=== PATIENT | female | born 1935 | race African-American/Black ===

== ENCOUNTER 2017-12-09 12:53 | Inpatient (IN) | payer MEDICARE, OTHER ==
[~2017-12-09] VITALS: Ht 160 cm; Wt 44.5 kg
[~2017-12-09 12:53] MED LIST: CLAR500T MT; CLON0.1T PO; FELO10TA PO; HYDR25TA PO; LABE200T28 PO; LOVA40TA73 PO; OMEP20TA2 MT; VALS320T2 PO
[2017-12-09] MEDS ORDERED: SODIUM CHLORIDE 0.9% 1,000 ML IV ONE ×2 (13:24→15:11)
[2017-12-09 14:16] LABS: HEMATOCRIT. 29.1 % (36.0-48.0); MEAN CORPUSCULAR HEMOGLOBIN 31.2 pg (28.0-32.0); MEAN PLATELET VOLUME 7.5 fl (7.4-10.4); PLATELET 286 x1000/uL (130-400)
[2017-12-09 14:24] LABS: CHLORIDE 107 mEq/L (98-107); INR 1.2; PROTHROMBIN TIME 11.7 sec (9.1-11.1)
[2017-12-09 14:37] LABS: PLATELET ESTIMATE NORMAL
[2017-12-09] MEDS ORDERED: PIPERACILLIN/TAZOBACTAM 3.375GM/50ML PREMIX IV NR (15:15)
[2017-12-09] MEDS: VANCOMYCIN 1 G PREMIX 200 ML IV SCH (15:15)
[2017-12-09] MEDS ORDERED: NITROGLYCERIN 0.4MG TABLET SL SL PRN (17:00)
[2017-12-09] MEDS ORDERED: TRAMADOL 50MG TABLET PO PRN (17:00)
[2017-12-09] MEDS ORDERED: DOCUSATE SODIUM 100MG CAPSULE PO PRN (17:00)
[2017-12-09] MEDS ORDERED: CLONIDINE 0.1MG TABLET PO PRN (17:00)
[2017-12-09] MEDS ORDERED: GUAIFENESIN 200MG/10ML SUGAR FREE UDC PO PRN (17:00)
[2017-12-09] MEDS ORDERED: ACETAMINOPHEN 325MG TABLET PO PRN (17:00)
[2017-12-09] MEDS ORDERED: ONDANSETRON HCL 4MG/2ML INJ IV PRN (17:00)
[2017-12-09] MEDS ORDERED: MAGNESIUM/ALUMINUM HYDROXIDE/SIMETHICONE 30ML UDC PO PRN (17:00)
[2017-12-09] MEDS ORDERED: IPRATROPIUM/ALBUTEROL 0.5-3(2.5)MG/3ML NEB INH PRN (17:00)
[2017-12-09] MEDS: SODIUM CHLORIDE 0.9% 1,000 ML IV SCH (17:02)
[2017-12-09 17:07] LABS: CLARITY URINE CLOUDY (CLEAR); COLOR URINE DARK YELLOW (YELLOW); KETONES URINE TRACE (NEGATIVE); LEUKOCYTE ESTERASE URINE NEGATIVE (NEGATIVE); NITRITE URINE NEGATIVE (NEGATIVE); OCCULT BLOOD URINE TRACE (NEGATIVE); PH URINE 5.5 (4.5-8.0); PROTEIN URINE 2+ (NEGATIVE)
[2017-12-09] MEDS ORDERED: DEXTROSE 50% WATER 50ML SYRINGE IV PRN (17:15)
[2017-12-09 17:25] LABS: T4 FREE 1.29 ng/dL (0.76-1.46)
[2017-12-09 17:53] LABS: VITAMIN B12 SERUM >2000 pg/mL pg/mL (211-911)
[2017-12-09] MEDS: INSULIN LISPRO 100 UNITS/ML SUBCUT SCH ×2 (18:20→21:00)
[2017-12-09] MEDS ORDERED: ZOLPIDEM TARTRATE 5MG TABLET PO PRN (21:00)
[2017-12-09] MEDS ORDERED: NA PHOS,M-B/NA PHOS,DI-BA ENEMA 118ML PR PRN (21:00)
[2017-12-09] MEDS: BLOOD SUGAR DIAGNOSTIC STRIP TEST SCH (21:00)
[2017-12-09 22:20] VITALS: BP 123/54
[2017-12-09 23:25] LABS: CREATINE KINASE 28 IU/L (26-192)
[2017-12-09 23:26] LABS: CREATINE KINASE MB FRACTION < 1.0 ng/mL (0.5-3.6)
[2017-12-10] VITALS: BP 101/54
[2017-12-10] MEDS ORDERED: LEVOFLOXACIN 500MG PREMIX 100 ML IV SCH
[2017-12-10] MEDS: SODIUM CHLORIDE 0.9% 1,000 ML IV SCH ×3 (02:06→23:49)
[2017-12-10] MEDS ORDERED: TLXL5 MT (03:25)
[2017-12-10 04:00] VITALS: BP 115/58
[2017-12-10] MEDS: INSULIN LISPRO 100 UNITS/ML SUBCUT SCH ×4 (06:30→21:00)
[2017-12-10] MEDS: BLOOD SUGAR DIAGNOSTIC STRIP TEST SCH ×4 (06:30→21:48)
[2017-12-10 07:04] LABS: CREATINE KINASE 20 IU/L (26-192)
[2017-12-10 07:05] LABS: CREATINE KINASE MB FRACTION < 1.0 ng/mL (0.5-3.6)
[2017-12-10] MEDS ORDERED: INFLUENZA VIRUS VACCINE 0.5ML SYR IM ONE (08:00)
[2017-12-10 08:08] VITALS: BP 102/58
[2017-12-10] MEDS: ASCORBIC ACID 500 MG TABLET PO SCH ×2 (08:32→21:45)
[2017-12-10] MEDS: ZINC SULFATE 220 MG ( 50 ) CAPSULE PO SCH (08:32)
[2017-12-10] MEDS: FAMOTIDINE 20MG TABLET PO SCH (08:32)
[2017-12-10] MEDS: ENOXAPARIN 30MG/0.3ML SYR SUBCUT SCH (08:33)
[2017-12-10] MEDS: ASPIRIN 325MG EC TABLET PO SCH (08:34)
[2017-12-10] MEDS: METOPROLOL TARTRATE 25MG TABLET PO SCH ×2 (09:00→21:00)
[2017-12-10 12:00] VITALS: BP 107/56
[2017-12-10] MEDS: VANCOMYCIN 1 G PREMIX 200 ML IV SCH (15:15)
[2017-12-10] MEDS ORDERED: POTASSIUM CHLORIDE 20MEQ/PACKET PO NR (15:30)
[2017-12-10 16:00] VITALS: BP 108/54
[2017-12-10 20:00] VITALS: BP 106/68
[2017-12-11] VITALS: BP 114/62
[2017-12-11] MEDS: IPRATROPIUM/ALBUTEROL 0.5-3(2.5)MG/3ML NEB HHN SCH ×7 (01:45→22:20)
[2017-12-11 04:00] VITALS: BP 108/59
[2017-12-11] MEDS: BLOOD SUGAR DIAGNOSTIC STRIP TEST SCH ×4 (06:27→20:26)
[2017-12-11] MEDS: INSULIN LISPRO 100 UNITS/ML SUBCUT SCH ×4 (07:34→20:32)
[2017-12-11 08:30] VITALS: BP 105/56
[2017-12-11] MEDS: FAMOTIDINE 20MG TABLET PO SCH (08:37)
[2017-12-11] MEDS: ZINC SULFATE 220 MG ( 50 ) CAPSULE PO SCH (08:37)
[2017-12-11] MEDS: ASPIRIN 325MG EC TABLET PO SCH (08:37)
[2017-12-11] MEDS: ASCORBIC ACID 500 MG TABLET PO SCH ×2 (08:37→20:36)
[2017-12-11] MEDS: SODIUM CHLORIDE 0.9% 1,000 ML IV SCH ×2 (08:38→20:36)
[2017-12-11] MEDS: ENOXAPARIN 30MG/0.3ML SYR SUBCUT SCH (08:38)
[2017-12-11] MEDS: METOPROLOL TARTRATE 25MG TABLET PO SCH ×2 (09:00→20:30)
[2017-12-11 12:00] VITALS: BP 114/63
[2017-12-11] MEDS: LEVOFLOXACIN 250MG PREMIX 50 ML IV SCH (13:18)
[2017-12-11] MEDS: VANCOMYCIN HCL 1000 MG/20 ML ORAL PO SCH ×2 (15:38→20:36)
[2017-12-11 16:00] VITALS: BP 126/69
[2017-12-11] MEDS ORDERED: VANCOMYCIN HCL 1 GM/VIAL PO SCH (18:00)
[2017-12-11 20:00] VITALS: BP 104/58
[2017-12-12] VITALS: BP 107/61
[2017-12-12] MEDS: IPRATROPIUM/ALBUTEROL 0.5-3(2.5)MG/3ML NEB HHN SCH ×5 (02:09→19:51)
[2017-12-12] MEDS: VANCOMYCIN HCL 1000 MG/20 ML ORAL PO SCH ×4 (03:26→20:18)
[2017-12-12 04:00] VITALS: BP 124/62
[2017-12-12] MEDS: BLOOD SUGAR DIAGNOSTIC STRIP TEST SCH ×4 (05:59→20:21)
[2017-12-12] MEDS: INSULIN LISPRO 100 UNITS/ML SUBCUT SCH ×4 (06:03→20:21)
[2017-12-12] MEDS: SODIUM CHLORIDE 0.9% 1,000 ML IV SCH ×2 (06:04→18:26)
[2017-12-12 08:00] VITALS: BP 143/68
[2017-12-12] MEDS: LEVOFLOXACIN 250MG PREMIX 50 ML IV SCH (08:47)
[2017-12-12] MEDS: ZINC SULFATE 220 MG ( 50 ) CAPSULE PO SCH (08:48)
[2017-12-12] MEDS: ENOXAPARIN 30MG/0.3ML SYR SUBCUT SCH (08:48)
[2017-12-12] MEDS: ASPIRIN 325MG EC TABLET PO SCH (08:48)
[2017-12-12] MEDS: ASCORBIC ACID 500 MG TABLET PO SCH ×2 (08:48→20:18)
[2017-12-12] MEDS: METOPROLOL TARTRATE 25MG TABLET PO SCH ×2 (08:49→20:19)
[2017-12-12] MEDS: FAMOTIDINE 20MG TABLET PO SCH (08:57)
[2017-12-12 12:00] VITALS: BP 137/69
[2017-12-12 16:21] VITALS: BP 115/64
[2017-12-12 19:52] VITALS: BP 134/68
[2017-12-13] VITALS: BP 123/69
[2017-12-13] MEDS: IPRATROPIUM/ALBUTEROL 0.5-3(2.5)MG/3ML NEB HHN SCH ×4 (00:38→11:37)
[2017-12-13] MEDS: VANCOMYCIN HCL 1000 MG/20 ML ORAL PO SCH ×2 (03:15→08:48)
[2017-12-13] MEDS: SODIUM CHLORIDE 0.9% 1,000 ML IV SCH (03:16)
[2017-12-13 04:34] VITALS: BP 126/70
[2017-12-13] MEDS: INSULIN LISPRO 100 UNITS/ML SUBCUT SCH ×2 (06:43→12:40)
[2017-12-13] MEDS: BLOOD SUGAR DIAGNOSTIC STRIP TEST SCH ×2 (06:43→12:51)
[2017-12-13 07:30] VITALS: BP 117/66
[2017-12-13] MEDS: ZINC SULFATE 220 MG ( 50 ) CAPSULE PO SCH (08:49)
[2017-12-13] MEDS: FAMOTIDINE 20MG TABLET PO SCH (08:49)
[2017-12-13] MEDS: ASPIRIN 325MG EC TABLET PO SCH (08:49)
[2017-12-13] MEDS: ASCORBIC ACID 500 MG TABLET PO SCH (08:49)
[2017-12-13] MEDS: METOPROLOL TARTRATE 25MG TABLET PO SCH (08:49)
[2017-12-13] MEDS: ENOXAPARIN 30MG/0.3ML SYR SUBCUT SCH (08:50)
[2017-12-13] MEDS ORDERED: LEVOFLOXACIN 250MG TABLET PO SCH (11:00)
[2017-12-13 12:22] VITALS: BP 120/57
[2017-12-13 12:51] VITALS: BP 120/57
== END 2017-12-13 15:20 | disposition home or self-care (01) | DRG 720 ==
LOC: ER 12:53 → EDBEDREQ 15:12 → 8WST 16:26 → EDBEDREQTM 16:31 → EDBEDREQ 16:31 → SUPCPDRO 16:45 → ENRESERV 20:10
PROVIDERS: ADMIT Internal Medicine; ATTEND Internal Medicine
DX: A41.9 Sepsis, unspecified organism (principal); N17.0 Acute kidney failure with tubular necrosis; E43 Unspecified severe protein-calorie malnutrition; G92 Toxic encephalopathy; A04.72 Enterocolitis due to Clostridium difficile, not specified as recurrent; D63.8 Anemia in other chronic diseases classified elsewhere; G30.9 Alzheimer's disease, unspecified; F02.80 Dementia in other diseases classified elsewhere, unspecified severity, without behavioral disturbance, psychotic disturbance, mood disturbance, and anxiety; I10 Essential (primary) hypertension; K21.9 Gastro-esophageal reflux disease without esophagitis; R73.9 Hyperglycemia, unspecified; Z91.81 History of falling; Z68.1 Body mass index [BMI] 19.9 or less, adult; Z79.899 Other long term (current) drug therapy
CPT/HCPCS: 36415; 71045; 80048; 80053; 80061; 81003; 82550; 82553; 82607; 82746; 82962; 83036; 83540; 83550; 83605; 84439; 84443; 84484; 85025; 85610; 87040; 87086; 87493; 90686; 93005; 93306; 93970; 94640; 96361; 96374; 97110; 97116; 97162; 97166; 97530; 97535; 99285; C1893; J1650; J1956; J2543; J3370; J7030; J7620; A4315

== ENCOUNTER 2017-12-31 18:13 | Emergency (ER) | payer MEDICARE, OTHER ==
[~2017-12-31] VITALS: Ht 160 cm; Wt 45.0 kg
[~2017-12-31 18:13] MED LIST changes: +TLXL5 MT
[2017-12-31] MEDS ORDERED: SODIUM CHLORIDE 0.9% 1,000 ML IV ONE (19:17)
[2017-12-31] MEDS ORDERED: ONDANSETRON HCL 4MG/2ML INJ IV STA (19:17)
[2017-12-31 20:33] LABS: BASOPHILS % 0.3 % (0.0-2.0); EOSINOPHILS % 1.5 % (0.0-5.0); HEMATOCRIT. 27.9 % (36.0-48.0); HEMOGLOBIN. 9.8 g/dL (12.0-16.0); LYMPHOCYTES % 36.4 % (20.0-50.0); MEAN CORPUSCULAR HEMOGLOBIN 32.5 pg (28.0-32.0); MEAN CORPUSCULAR VOLUME 92.8 fL (81.0-99.0); MEAN PLATELET VOLUME 7.9 fl (7.4-10.4); MONOCYTES % 12.3 % (2.0-8.0); NEUTROPHILS % 49.5 % (40.0-76.0); PLATELET 237 x1000/uL (130-400); RED BLOOD CELL COUNT 3.01 mill/uL (4.2-5.4); RED CELL DISTRIBUTION WIDTH 17.9 % (11.6-14.6)
[2017-12-31 20:36] LABS: INR 1.1
[2017-12-31 20:38] LABS: CHLORIDE 103 mEq/L (98-107)
[2017-12-31] MEDS ORDERED: KCL 20MEQ/100ML PREMIX 100 ML IV ONE (21:00)
[2017-12-31] MEDS ORDERED: MAGNESIUM 2 G PREMIX 50 ML IV ONE (21:30)
[2018-01-01 03:53] VITALS: BP 142/67
== END 2018-01-01 04:00 | disposition short-term general hospital (02) ==
LOC: ER 22:42 → CANBEDREQ 01-01 07:06
DX: R53.1 Weakness (principal); E86.0 Dehydration; E88.09 Other disorders of plasma-protein metabolism, not elsewhere classified; E87.6 Hypokalemia; I10 Essential (primary) hypertension; K21.9 Gastro-esophageal reflux disease without esophagitis
CPT/HCPCS: 36415; 71045; 80053; 83605; 83690; 83735; 83880; 84484; 85025; 85610; 87040; 93005; 96361; 96365; 96366; 96368; 96375; 99285; J2405; J3475; J3480; J7030

== ENCOUNTER 2020-09-20 17:18 | Emergency (ER) | payer MEDICARE, OTHER ==
[~2020-09-20] VITALS: Ht 154.9 cm; Wt 60.0 kg
[~2020-09-20 17:18] MED LIST changes: +CLAR-44 MT; -CLAR500T MT; -FELO10TA PO; +FELO10TA45 PO; -LABE200T28 PO; +LABE200T9 PO
[2020-09-20 18:23] LABS: BASOPHILS % 0.8 % (0.0-2.0); EOSINOPHILS % 3.6 % (0.0-5.0); HEMATOCRIT. 33.4 % (36.0-48.0); HEMOGLOBIN. 11.5 g/dL (12.0-16.0); LYMPHOCYTES % 46.4 % (20.0-50.0); MEAN CORPUSCULAR HEMOGLOBIN 32.4 pg (28.0-32.0); MEAN CORPUSCULAR VOLUME 93.8 fL (81.0-99.0); MEAN PLATELET VOLUME 7.5 fl (7.4-10.4); MONOCYTES % 10.2 % (2.0-8.0); PLATELET 204 x1000/uL (130-400); RED BLOOD CELL COUNT 3.56 mill/uL (4.2-5.4); RED CELL DISTRIBUTION WIDTH 13.7 % (11.6-14.6)
[2020-09-20 18:26] LABS: CHLORIDE 111 mEq/L (98-107)
[2020-09-20 18:36] LABS: B-HCG QUANTITATIVE 3 mIU/mL (<3)
[2020-09-20 19:44] VITALS: BP 159/74
== END 2020-09-20 19:46 | disposition home or self-care (01) ==
LOC: ER 17:18
DX: D25.9 Leiomyoma of uterus, unspecified (principal); I10 Essential (primary) hypertension; K21.9 Gastro-esophageal reflux disease without esophagitis
CPT/HCPCS: 36415; 76830; 76856; 80053; 84702; 85025; 86850; 86900; 99284

== ENCOUNTER → 2020-11-16 | Outpatient (CLI) | payer MEDICARE, OTHER ==
[~2020-11-16] MED LIST changes: +GADOTERATE MEGLUMINE 5 MMOL/10 ML VIAL IV ONE
== END | disposition home or self-care (01) ==
LOC: MRI 09:27
PROVIDERS: ATTEND Internal Medicine Geriatric Medicine
DX: D25.1 Intramural leiomyoma of uterus (principal); N85.2 Hypertrophy of uterus; D25.2 Subserosal leiomyoma of uterus; N32.89 Other specified disorders of bladder; R19.00 Intra-abdominal and pelvic swelling, mass and lump, unspecified site; M81.0 Age-related osteoporosis without current pathological fracture
CPT/HCPCS: 72197; A9577

== ENCOUNTER → 2020-11-26 | Outpatient (CLI) | payer MEDICARE, OTHER ==
[~2020-11-26] MED LIST changes: +ATOR10TA PO; +ERGO500013; -GADOTERATE MEGLUMINE 5 MMOL/10 ML VIAL IV ONE; +MEGE400O5 PO
== END | disposition home or self-care (01) ==
LOC: CARD 08:38
PROVIDERS: ATTEND Internal Medicine Geriatric Medicine
DX: I08.1 Rheumatic disorders of both mitral and tricuspid valves (principal); I27.20 Pulmonary hypertension, unspecified; I10 Essential (primary) hypertension; R60.0 Localized edema
CPT/HCPCS: 93306

== ENCOUNTER 2020-12-07 17:04 | Inpatient (IN) | payer MEDICARE, OTHER ==
[~2020-12-07] VITALS: Ht 167.6 cm; Wt 53.8 kg
[~2020-12-07 17:04] MED LIST changes: -ATOR10TA PO; -ERGO500013; -MEGE400O5 PO
[2020-12-07 18:52] LABS: BASOPHILS % 0.9 % (0.0-2.0); EOSINOPHILS % 0.7 % (0.0-5.0); HEMATOCRIT. 28.7 % (36.0-48.0); LYMPHOCYTES % 31.4 % (20.0-50.0); MEAN CORPUSCULAR HEMOGLOBIN 32.3 pg (28.0-32.0); MEAN CORPUSCULAR VOLUME 92.7 fL (81.0-99.0); MEAN PLATELET VOLUME 7.6 fl (7.4-10.4); MONOCYTES % 11.1 % (2.0-8.0); NEUTROPHILS % 55.9 % (40.0-76.0); PLATELET 240 x1000/uL (130-400); RED CELL DISTRIBUTION WIDTH 18.7 % (11.6-14.6)
[2020-12-07 19:00] LABS: CHLORIDE 105 mEq/L (98-107)
[2020-12-07] MEDS ORDERED: ENOXAPARIN 60MG/0.6ML SYR SUBCUT ONE (20:30)
[2020-12-07 23:12] LABS: CLARITY URINE CLOUDY (CLEAR); COLOR URINE YELLOW (YELLOW); KETONES URINE NEGATIVE (NEGATIVE); LEUKOCYTE ESTERASE URINE 3+ (NEGATIVE); NITRITE URINE NEGATIVE (NEGATIVE); OCCULT BLOOD URINE 2+ (NEGATIVE); PROTEIN URINE TRACE (NEGATIVE); SPECIFIC GRAVITY URINE 1.008 (1.005-1.030); UROBILINOGEN URINE 0.2 E.U./dL (0.2-1.0)
[2020-12-07] MEDS ORDERED: ONDANSETRON HCL 4MG/2ML INJ IV PRN (23:15)
[2020-12-07] MEDS ORDERED: CLONIDINE 0.1MG TABLET PO PRN (23:15)
[2020-12-07] MEDS ORDERED: ACETAMINOPHEN 325MG TABLET PO PRN (23:15)
[2020-12-07] MEDS ORDERED: IPRATROPIUM/ALBUTEROL 0.5-3(2.5)MG/3ML NEB HHN PRN (23:15)
[2020-12-07] MEDS ORDERED: MAGNESIUM/ALUMINUM HYDROXIDE/SIMETHICONE 30ML UDC PO PRN (23:15)
[2020-12-08 00:31] LABS: BG CARBOXYHEMOGLOBIN 0.2 % (0.5-1.5); BG DEOXYHEMOGLOBIN 3.2 % (0.0-5.0); BG FRACTION INSPIRED OXYGEN 21; BG HCO3 ACT 25.1 mmol/L (22.0-26.0); BG METHEMOGLOBIN 0.2 % (0.0-1.5); BG OXYGEN SATURATION 96.8 % (92.0-98.5); BG OXYHEMOGLOBIN 96.4 % (94.0-97.0); BG PCO2 33.5 mmHg (35.0-45.0); BG PH 7.493 (7.350-7.450); BG SAMPLE SITE RIGHT RADIAL; BG TOTAL HEMOGLOBIN 9.3 g/dL (12.0-18.0); BG VENT MODE ROOM AIR
[2020-12-08] MEDS ORDERED: CEFTRIAXONE 1 G PREMIX 50 ML IV ONE (01:30)
[2020-12-08 04:49] VITALS: BP 127/67
[2020-12-08 04:50] VITALS: BP 127/67
[2020-12-08] MEDS: PANTOPRAZOLE 40MG DR TABLET PO SCH (05:45)
[2020-12-08] MEDS ORDERED: ATOR10TA PO (06:27)
[2020-12-08] MEDS ORDERED: ERGO1250 (06:28)
[2020-12-08] MEDS ORDERED: MEGE400O5 PO (06:29)
[2020-12-08] MEDS: DOCUSATE SODIUM 100MG CAPSULE PO SCH ×2 (08:55→17:51)
[2020-12-08] MEDS: MEMANTINE HCL 5MG TABLET PO SCH (08:55)
[2020-12-08] MEDS: GALANTAMINE HBR 8MG ER CAPSULE 24HR PO SCH (08:55)
[2020-12-08 09:13] LABS: BASOPHILS % 0.4 % (0.0-2.0); EOSINOPHILS % 1.2 % (0.0-5.0); HEMATOCRIT. 24.7 % (36.0-48.0); HEMOGLOBIN. 8.9 g/dL (12.0-16.0); LYMPHOCYTES % 41.9 % (20.0-50.0); MEAN CORPUSCULAR HEMOGLOBIN 32.9 pg (28.0-32.0); MEAN CORPUSCULAR VOLUME 91.6 fL (81.0-99.0); MEAN PLATELET VOLUME 7.8 fl (7.4-10.4); MONOCYTES % 10.9 % (2.0-8.0); NEUTROPHILS % 45.6 % (40.0-76.0); PLATELET 213 x1000/uL (130-400); RED CELL DISTRIBUTION WIDTH 18.7 % (11.6-14.6)
[2020-12-08] MEDS ORDERED: PNEUMOCOCCAL 23-VAL P-SAC VAC 0.5 ML IM ONE (10:00)
[2020-12-08 12:00] VITALS: BP 126/60
[2020-12-08 15:51] LABS: INR 1.1; PROTHROMBIN TIME 11.9 sec (9.6-11.0)
[2020-12-08 16:00] VITALS: BP 120/57
[2020-12-08 20:32] VITALS: BP 116/57
[2020-12-08] MEDS: ENOXAPARIN 40MG/0.4ML SYR SUBCUT SCH (21:00)
[2020-12-08 23:59] VITALS: BP 128/74
[2020-12-09] VITALS (17 sets, daily range): BP systolic 126–150; BP diastolic 62–76
[2020-12-09] MEDS: PANTOPRAZOLE 40MG DR TABLET PO SCH (05:50)
[2020-12-09 06:21] LABS: BASOPHILS % 0.4 % (0.0-2.0); EOSINOPHILS % 0.7 % (0.0-5.0); HEMATOCRIT. 26.9 % (36.0-48.0); HEMOGLOBIN. 9.1 g/dL (12.0-16.0); LYMPHOCYTES % 35.4 % (20.0-50.0); MEAN CORPUSCULAR HEMOGLOBIN 32.3 pg (28.0-32.0); MEAN CORPUSCULAR VOLUME 94.8 fL (81.0-99.0); MEAN PLATELET VOLUME 8.1 fl (7.4-10.4); MONOCYTES % 10.1 % (2.0-8.0); NEUTROPHILS % 53.4 % (40.0-76.0); PLATELET 211 x1000/uL (130-400); RED BLOOD CELL COUNT 2.83 mill/uL (4.2-5.4); RED CELL DISTRIBUTION WIDTH 20.1 % (11.6-14.6)
[2020-12-09] MEDS ORDERED: CEFAZOLIN 1000MG PREMIX 50 ML IV NR (07:15)
[2020-12-09] MEDS ORDERED: SODIUM BICARBONATE 4% (2.4MEQ) 5ML VIAL IV ONE (07:24)
[2020-12-09] MEDS ORDERED: CEFAZOLIN 1000MG PREMIX 50 ML IV ONE (07:24)
[2020-12-09] MEDS ORDERED: IOHEXOL-300 100 ML BOTTLE ONE (07:24)
[2020-12-09] MEDS ORDERED: LIDOCAINE HCL 1% 20ML VIAL (Pyxis) INJ ONE (07:24)
[2020-12-09] MEDS: DOCUSATE SODIUM 100MG CAPSULE PO SCH ×2 (09:00→16:45)
[2020-12-09] MEDS: MEMANTINE HCL 5MG TABLET PO SCH (11:24)
[2020-12-09] MEDS: GALANTAMINE HBR 8MG ER CAPSULE 24HR PO SCH (11:24)
[2020-12-09] MEDS ORDERED: ATENOLOL 25MG TABLET PO ONE ×2 (11:30)
[2020-12-09] MEDS: ENOXAPARIN 40MG/0.4ML SYR SUBCUT SCH (20:03)
[2020-12-10] VITALS: BP 113/46
[2020-12-10 04:00] VITALS: BP 107/52
[2020-12-10] MEDS ORDERED: FAMOTIDINE 20MG TABLET PO SCH (06:40)
[2020-12-10 08:00] VITALS: BP 121/67
[2020-12-10] MEDS: GALANTAMINE HBR 8MG ER CAPSULE 24HR PO SCH (08:50)
[2020-12-10] MEDS: DOCUSATE SODIUM 100MG CAPSULE PO SCH (08:51)
[2020-12-10] MEDS: MEMANTINE HCL 5MG TABLET PO SCH (08:51)
[2020-12-10] MEDS ORDERED: ATENOLOL 25MG TABLET PO SCH (09:00)
[2020-12-10] MEDS ORDERED: ATENOLOL 50 MG TABLET PO SCH (09:00)
[2020-12-10 10:42] VITALS: BP 121/67
== END 2020-12-10 14:10 | disposition home or self-care (01) | DRG 197 ==
LOC: ER 17:04 → 7EST 20:28 → ENRESERV 23:16 → CANRESERV 23:16 → ENRESERV 12-08 03:19
PROVIDERS: ADMIT Internal Medicine Geriatric Medicine; ATTEND Internal Medicine Geriatric Medicine
PROC: 06H03DZ Insertion of Intraluminal Device into Inferior Vena Cava, Percutaneous Approach (ICD-10-PCS; principal; 2020-12-09)
PROC: B519ZZA Fluoroscopy of Inferior Vena Cava, Guidance (ICD-10-PCS; 2020-12-09)
DX: I82.412 Acute embolism and thrombosis of left femoral vein (principal); I27.21 Secondary pulmonary arterial hypertension; N17.9 Acute kidney failure, unspecified; D63.8 Anemia in other chronic diseases classified elsewhere; G30.9 Alzheimer's disease, unspecified; F02.81 Dementia in other diseases classified elsewhere, unspecified severity, with behavioral disturbance; I82.432 Acute embolism and thrombosis of left popliteal vein; I38 Endocarditis, valve unspecified; I12.9 Hypertensive chronic kidney disease with stage 1 through stage 4 chronic kidney disease, or unspecified chronic kidney disease; N39.0 Urinary tract infection, site not specified; N18.9 Chronic kidney disease, unspecified; D25.9 Leiomyoma of uterus, unspecified; K21.9 Gastro-esophageal reflux disease without esophagitis; Z20.822 Contact with and (suspected) exposure to COVID-19; K57.90 Diverticulosis of intestine, part unspecified, without perforation or abscess without bleeding; I36.1 Nonrheumatic tricuspid (valve) insufficiency; Z86.73 Personal history of transient ischemic attack (TIA), and cerebral infarction without residual deficits; Z95.828 Presence of other vascular implants and grafts; Z79.1 Long term (current) use of non-steroidal anti-inflammatories (NSAID); Z79.899 Other long term (current) drug therapy; R53.1 Weakness
CPT/HCPCS: 36415; 36600; 37191; 78582; 80048; 80053; 81003; 82375; 82805; 83036; 83540; 83550; 84443; 85025; 90732; 93971; 97162; 99285; A9558; C1769; C1880; C1887; J0690; J0696; J1650; J3490; J7040; Q9967; U0003; U0005

== ENCOUNTER 2021-01-29 09:27 | Inpatient (IN) | payer MEDICARE, OTHER ==
[~2021-01-29] VITALS: Ht 152.4 cm; Wt 46.7 kg
[~2021-01-29 09:27] MED LIST changes: +ATOR10TA PO; +ERGO1250
[2021-01-29 10:36] LABS: BASOPHILS % 1.3 % (0.0-2.0); EOSINOPHILS % 0.9 % (0.0-5.0); HEMATOCRIT. 28.7 % (36.0-48.0); LYMPHOCYTES % 32.7 % (20.0-50.0); MEAN CORPUSCULAR HEMOGLOBIN 32.9 pg (28.0-32.0); MEAN CORPUSCULAR VOLUME 94.8 fL (81.0-99.0); MEAN PLATELET VOLUME 7.5 fl (7.4-10.4); MONOCYTES % 10.1 % (2.0-8.0); PLATELET 214 x1000/uL (130-400); RED BLOOD CELL COUNT 3.03 mill/uL (4.2-5.4); RED CELL DISTRIBUTION WIDTH 14.9 % (11.6-14.6)
[2021-01-29 10:45] LABS: CHLORIDE 108 mEq/L (98-107)
[2021-01-29 10:48] LABS: ETHANOL BLOOD < 10 mg/dL
[2021-01-29] MEDS ORDERED: FUROSEMIDE 20MG/2ML VIAL IVP ONE (11:15)
[2021-01-30] MEDS ORDERED: NALOXONE HCL 0.4MG/ML VIAL IV PRN (13:15)
[2021-01-30] MEDS ORDERED: ACETAMINOPHEN 325MG TABLET PO PRN ×2 (13:15)
[2021-01-30] MEDS ORDERED: IPRATROPIUM/ALBUTEROL 0.5-3(2.5)MG/3ML NEB HHN PRN (13:15)
[2021-01-30] MEDS ORDERED: CLONIDINE 0.1MG TABLET PO PRN (13:15)
[2021-01-30] MEDS ORDERED: LORAZEPAM 0.5MG TABLET PO PRN (13:15)
[2021-01-30] MEDS ORDERED: HYDROCODONE/ACETAMINOPHEN 5/325MG TABLET PO PRN (13:15)
[2021-01-30] MEDS ORDERED: ONDANSETRON HCL 4MG/2ML INJ IV PRN (13:15)
[2021-01-30] MEDS ORDERED: DOCUSATE SODIUM 100MG CAPSULE PO PRN (13:15)
[2021-01-30] MEDS ORDERED: IOHEXOL-350 100 ML BOTTLE ONE (13:17)
[2021-01-30 16:01] VITALS: BP 188/83
[2021-01-30 16:30] VITALS: BP 188/83
[2021-01-30] MEDS ORDERED: APIX2.5T MT (16:41)
[2021-01-30] MEDS: ASPIRIN 81MG EC TABLET PO SCH (17:02)
[2021-01-30] MEDS: LOSARTAN POTASSIUM 25 MG TABLET PO SCH (17:06)
[2021-01-30 19:36] LABS: CREATINE KINASE MB FRACTION 4.5 ng/mL (0.5-3.6)
[2021-01-30 19:37] LABS: FOLIC ACID (FOLATE) SERUM > 20.00 ng/mL (>5.38)
[2021-01-30 19:44] LABS: VITAMIN B12 SERUM 1071 pg/mL (211-911)
[2021-01-30 20:00] VITALS: BP 165/89
[2021-01-30] MEDS ORDERED: POTASSIUM CHLORIDE 20MEQ TABLET SR PO NR (20:00)
[2021-01-30] MEDS: METOPROLOL TARTRATE 25MG TABLET PO SCH (21:01)
[2021-01-30] MEDS: FAMOTIDINE 20MG TABLET PO SCH (21:01)
[2021-01-30] MEDS: NITROGLYCERIN OINT 1GM/INCH UDPKT TD SCH (21:02)
[2021-01-30] MEDS: CLONIDINE 0.1MG TABLET PO SCH (21:02)
[2021-01-31] VITALS: BP 160/92
[2021-01-31] MEDS: CLONIDINE 0.1MG TABLET PO SCH ×6 (00:38→22:26)
[2021-01-31 04:00] VITALS: BP 136/81
[2021-01-31] MEDS: NITROGLYCERIN OINT 1GM/INCH UDPKT TD SCH ×3 (05:10→22:27)
[2021-01-31 06:43] LABS: BASOPHILS % 0.8 % (0.0-2.0); EOSINOPHILS % 0.8 % (0.0-5.0); HEMATOCRIT. 28.3 % (36.0-48.0); HEMOGLOBIN. 9.8 g/dL (12.0-16.0); MEAN CORPUSCULAR HEMOGLOBIN 32.9 pg (28.0-32.0); MEAN CORPUSCULAR VOLUME 94.8 fL (81.0-99.0); MEAN PLATELET VOLUME 7.7 fl (7.4-10.4); MONOCYTES % 9.2 % (2.0-8.0); NEUTROPHILS % 63.2 % (40.0-76.0); PLATELET 216 x1000/uL (130-400); RED BLOOD CELL COUNT 2.99 mill/uL (4.2-5.4); RED CELL DISTRIBUTION WIDTH 14.9 % (11.6-14.6)
[2021-01-31 07:57] LABS: CREATINE KINASE MB FRACTION 3.5 ng/mL (0.5-3.6)
[2021-01-31] MEDS ORDERED: POTASSIUM CHLORIDE 20MEQ TABLET SR PO SCH (09:00)
[2021-01-31] MEDS: LOSARTAN POTASSIUM 25 MG TABLET PO SCH (09:10)
[2021-01-31] MEDS: METOPROLOL TARTRATE 25MG TABLET PO SCH ×2 (09:10→21:00)
[2021-01-31] MEDS: ASPIRIN 81MG EC TABLET PO SCH (09:10)
[2021-01-31] MEDS: FAMOTIDINE 20MG TABLET PO SCH (09:10)
[2021-01-31] MEDS ORDERED: POTASSIUM CHLORIDE 20MEQ/PACKET PO NR (09:15)
[2021-01-31] MEDS ORDERED: POTASSIUM CHLORIDE 20MEQ TABLET SR PO ONE (09:45)
[2021-01-31] MEDS ORDERED: CLOPIDOGREL 75MG TABLET PO SCH (10:00)
[2021-01-31] MEDS ORDERED: PANTOPRAZOLE 40MG DR TABLET PO SCH (10:00)
[2021-01-31] MEDS: SODIUM CHLORIDE 0.45% 1,000 ML IV SCH (11:08)
[2021-01-31] MEDS ORDERED: GALANTAMINE HBR 8MG ER CAPSULE 24HR PO SCH (12:00)
[2021-01-31 14:00] VITALS: BP 144/76
[2021-01-31] MEDS: FERROUS SULFATE 325MG TABLET PO SCH ×2 (14:37→17:17)
[2021-01-31 17:00] VITALS: BP 116/55
[2021-01-31 20:00] VITALS: BP 159/70
[2021-01-31] MEDS: ATORVASTATIN CALCIUM 40MG TABLET PO SCH (22:27)
[2021-02-01] VITALS (7 sets, daily range): BP systolic 83–158; BP diastolic 45–87
[2021-02-01] MEDS: CLONIDINE 0.1MG TABLET PO SCH ×6 (00:53→20:55)
[2021-02-01] MEDS: NITROGLYCERIN OINT 1GM/INCH UDPKT TD SCH ×3 (07:17→21:01)
[2021-02-01] MEDS: PANTOPRAZOLE 40MG DR TABLET PO SCH (07:17)
[2021-02-01] MEDS: ASPIRIN 81MG EC TABLET PO SCH (08:51)
[2021-02-01] MEDS: FERROUS SULFATE 325MG TABLET PO SCH ×3 (08:51→16:15)
[2021-02-01] MEDS: GALANTAMINE HBR 8MG ER CAPSULE 24HR PO SCH (08:51)
[2021-02-01] MEDS: POTASSIUM CHLORIDE 20MEQ TABLET SR PO SCH (08:52)
[2021-02-01] MEDS: METOPROLOL TARTRATE 25MG TABLET PO SCH ×2 (08:53→20:56)
[2021-02-01] MEDS ORDERED: MAGNESIUM 2 G PREMIX 50 ML IV PRN (09:00)
[2021-02-01 09:24] LABS: BASOPHILS % 0.7 % (0.0-2.0); EOSINOPHILS % 1.6 % (0.0-5.0); HEMATOCRIT. 27.1 % (36.0-48.0); HEMOGLOBIN. 9.5 g/dL (12.0-16.0); LYMPHOCYTES % 25.7 % (20.0-50.0); MEAN CORPUSCULAR VOLUME 94.4 fL (81.0-99.0); MEAN PLATELET VOLUME 7.8 fl (7.4-10.4); MONOCYTES % 10.3 % (2.0-8.0); NEUTROPHILS % 61.7 % (40.0-76.0); PLATELET 189 x1000/uL (130-400); RED BLOOD CELL COUNT 2.87 mill/uL (4.2-5.4); RED CELL DISTRIBUTION WIDTH 14.7 % (11.6-14.6)
[2021-02-01] MEDS ORDERED: POTASSIUM CHLORIDE 20MEQ/PACKET PO SCH (09:45)
[2021-02-01] MEDS: CLOPIDOGREL 75MG TABLET PO SCH (11:12)
[2021-02-01] MEDS ORDERED: POTASSIUM CHLORIDE 20MEQ/PACKET PO NR (15:30)
[2021-02-01] MEDS: ATORVASTATIN CALCIUM 40MG TABLET PO SCH (21:52)
[2021-02-02] VITALS (7 sets, daily range): BP systolic 145–170; BP diastolic 76–89
[2021-02-02] MEDS: CLONIDINE 0.1MG TABLET PO SCH ×7 (00:46→23:43)
[2021-02-02] MEDS: SODIUM CHLORIDE 0.45% 1,000 ML IV SCH ×3 (00:47→21:21)
[2021-02-02] MEDS: FERROUS SULFATE 325MG TABLET PO SCH ×3 (06:53→17:00)
[2021-02-02] MEDS: PANTOPRAZOLE 40MG DR TABLET PO SCH (06:53)
[2021-02-02] MEDS: NITROGLYCERIN OINT 1GM/INCH UDPKT TD SCH ×3 (06:54→21:21)
[2021-02-02 06:59] LABS: BASOPHILS % 0.7 % (0.0-2.0); HEMATOCRIT. 27.6 % (36.0-48.0); HEMOGLOBIN. 9.8 g/dL (12.0-16.0); LYMPHOCYTES % 32.2 % (20.0-50.0); MEAN CORPUSCULAR HEMOGLOBIN 33.3 pg (28.0-32.0); MEAN PLATELET VOLUME 7.7 fl (7.4-10.4); MONOCYTES % 11.3 % (2.0-8.0); NEUTROPHILS % 52.8 % (40.0-76.0); PLATELET 174 x1000/uL (130-400); RED BLOOD CELL COUNT 2.94 mill/uL (4.2-5.4); RED CELL DISTRIBUTION WIDTH 15.1 % (11.6-14.6)
[2021-02-02 07:13] LABS: CHLORIDE 107 mEq/L (98-107)
[2021-02-02] MEDS: ASPIRIN 81MG EC TABLET PO SCH (08:30)
[2021-02-02] MEDS: POTASSIUM CHLORIDE 20MEQ TABLET SR PO SCH (08:30)
[2021-02-02] MEDS: GALANTAMINE HBR 8MG ER CAPSULE 24HR PO SCH (08:30)
[2021-02-02] MEDS: METOPROLOL TARTRATE 25MG TABLET PO SCH ×2 (08:31→21:21)
[2021-02-02 09:08] LABS: CLARITY URINE TURBID (CLEAR); COLOR URINE RED (YELLOW); KETONES URINE 2+ (NEGATIVE); LEUKOCYTE ESTERASE URINE 2+ (NEGATIVE); NITRITE URINE POSITIVE (NEGATIVE); OCCULT BLOOD URINE 3+ (NEGATIVE); PH URINE 6.5 (4.5-8.0); PROTEIN URINE 2+ (NEGATIVE); SPECIFIC GRAVITY URINE 1.008 (1.005-1.030)
[2021-02-02] MEDS: CLOPIDOGREL 75MG TABLET PO SCH (17:00)
[2021-02-02] MEDS: ATORVASTATIN CALCIUM 40MG TABLET PO SCH (21:20)
[2021-02-03] VITALS: BP 136/77
[2021-02-03 04:00] VITALS: BP 159/84
[2021-02-03] MEDS: CLONIDINE 0.1MG TABLET PO SCH ×3 (04:40→17:04)
[2021-02-03] MEDS: NITROGLYCERIN OINT 1GM/INCH UDPKT TD SCH ×3 (05:52→21:34)
[2021-02-03] MEDS: PANTOPRAZOLE 40MG DR TABLET PO SCH (05:52)
[2021-02-03 08:00] VITALS: BP 146/83
[2021-02-03] MEDS ORDERED: CEFTRIAXONE 1 G PREMIX 50 ML IV SCH (09:15)
[2021-02-03] MEDS: ASPIRIN 81MG EC TABLET PO SCH (10:00)
[2021-02-03] MEDS ORDERED: LEVOFLOXACIN 250MG PREMIX 50 ML IV ONE (10:00)
[2021-02-03] MEDS: POTASSIUM CHLORIDE 20MEQ TABLET SR PO SCH (10:00)
[2021-02-03] MEDS: FERROUS SULFATE 325MG TABLET PO SCH ×3 (10:01→17:04)
[2021-02-03] MEDS: CLOPIDOGREL 75MG TABLET PO SCH (10:01)
[2021-02-03] MEDS: GALANTAMINE HBR 8MG ER CAPSULE 24HR PO SCH (10:01)
[2021-02-03] MEDS: METOPROLOL TARTRATE 25MG TABLET PO SCH ×2 (10:02→21:34)
[2021-02-03 11:52] LABS: BASOPHILS % 0.5 % (0.0-2.0); EOSINOPHILS % 2.3 % (0.0-5.0); LYMPHOCYTES % 29.5 % (20.0-50.0); MEAN CORPUSCULAR HEMOGLOBIN 32.5 pg (28.0-32.0); MEAN CORPUSCULAR VOLUME 94.2 fL (81.0-99.0); MONOCYTES % 11.2 % (2.0-8.0); NEUTROPHILS % 56.5 % (40.0-76.0); PLATELET 180 x1000/uL (130-400); RED BLOOD CELL COUNT 2.76 mill/uL (4.2-5.4); RED CELL DISTRIBUTION WIDTH 14.7 % (11.6-14.6)
[2021-02-03 12:00] VITALS: BP 137/74
[2021-02-03 16:00] VITALS: BP 133/78
[2021-02-03] MEDS: CEFTRIAXONE 1,000 MG in DEXTROSE 5% WATER 50 ML IV SCH (17:04)
[2021-02-03 17:17] LABS: CLARITY URINE CLOUDY (CLEAR); COLOR URINE RED (YELLOW); KETONES URINE TRACE (NEGATIVE); LEUKOCYTE ESTERASE URINE 1+ (NEGATIVE); NITRITE URINE NEGATIVE (NEGATIVE); OCCULT BLOOD URINE 3+ (NEGATIVE); PROTEIN URINE 3+ (NEGATIVE); SPECIFIC GRAVITY URINE 1.019 (1.005-1.030)
[2021-02-03 20:00] VITALS: BP 148/76
[2021-02-03] MEDS: ATORVASTATIN CALCIUM 40MG TABLET PO SCH (21:33)
[2021-02-03] MEDS: AMLODIPINE 5MG TABLET PO SCH (21:34)
[2021-02-04] VITALS: BP 136/74
[2021-02-04 04:00] VITALS: BP 123/70
[2021-02-04] MEDS: NITROGLYCERIN OINT 1GM/INCH UDPKT TD SCH ×3 (05:41→20:56)
[2021-02-04] MEDS: PANTOPRAZOLE 40MG DR TABLET PO SCH (05:41)
[2021-02-04 06:10] LABS: BASOPHILS % 0.5 % (0.0-2.0); EOSINOPHILS % 2.3 % (0.0-5.0); HEMATOCRIT. 25.5 % (36.0-48.0); HEMOGLOBIN. 8.8 g/dL (12.0-16.0); LYMPHOCYTES % 30.7 % (20.0-50.0); MEAN CORPUSCULAR HEMOGLOBIN 32.8 pg (28.0-32.0); MEAN CORPUSCULAR VOLUME 95.3 fL (81.0-99.0); MEAN PLATELET VOLUME 8.3 fl (7.4-10.4); MONOCYTES % 12.3 % (2.0-8.0); NEUTROPHILS % 54.2 % (40.0-76.0); PLATELET 184 x1000/uL (130-400); RED BLOOD CELL COUNT 2.67 mill/uL (4.2-5.4); RED CELL DISTRIBUTION WIDTH 14.8 % (11.6-14.6)
[2021-02-04 08:00] VITALS: BP_SYST 108; BP_SYST 128; BP_DIAS 65; BP_DIAS 66
[2021-02-04] MEDS: AMLODIPINE 5MG TABLET PO SCH ×2 (09:00→20:56)
[2021-02-04] MEDS: METOPROLOL TARTRATE 25MG TABLET PO SCH ×2 (09:00→20:56)
[2021-02-04] MEDS: CLONIDINE 0.1MG TABLET PO SCH ×2 (09:00→17:00)
[2021-02-04] MEDS: FERROUS SULFATE 325MG TABLET PO SCH ×3 (10:52→18:01)
[2021-02-04] MEDS: GALANTAMINE HBR 8MG ER CAPSULE 24HR PO SCH (10:54)
[2021-02-04] MEDS: CEFTRIAXONE 1,000 MG in DEXTROSE 5% WATER 50 ML IV SCH (11:25)
[2021-02-04 12:00] VITALS: BP 137/69
[2021-02-04] MEDS ORDERED: SODIUM POLYSTYRENE SULFONATE 15 G/60 ML BOT PO NR (12:00)
[2021-02-04 16:00] VITALS: BP 112/73
[2021-02-04 20:00] VITALS: BP 141/72
[2021-02-04] MEDS: ATORVASTATIN CALCIUM 40MG TABLET PO SCH (20:55)
[2021-02-05] VITALS: BP 133/74
[2021-02-05 04:00] VITALS: BP 124/71
[2021-02-05] MEDS: FERROUS SULFATE 325MG TABLET PO SCH ×3 (05:25→17:27)
[2021-02-05] MEDS: NITROGLYCERIN OINT 1GM/INCH UDPKT TD SCH ×3 (05:25→21:13)
[2021-02-05] MEDS: PANTOPRAZOLE 40MG DR TABLET PO SCH (05:25)
[2021-02-05 07:11] LABS: BASOPHILS % 0.4 % (0.0-2.0); EOSINOPHILS % 1.3 % (0.0-5.0); HEMATOCRIT. 27.2 % (36.0-48.0); HEMOGLOBIN. 9.4 g/dL (12.0-16.0); LYMPHOCYTES % 25.9 % (20.0-50.0); MEAN CORPUSCULAR HEMOGLOBIN 32.6 pg (28.0-32.0); MEAN CORPUSCULAR VOLUME 93.8 fL (81.0-99.0); MEAN PLATELET VOLUME 8.1 fl (7.4-10.4); MONOCYTES % 10.8 % (2.0-8.0); NEUTROPHILS % 61.6 % (40.0-76.0); PLATELET 217 x1000/uL (130-400); RED CELL DISTRIBUTION WIDTH 14.8 % (11.6-14.6)
[2021-02-05 08:00] VITALS: BP 104/51
[2021-02-05] MEDS: AMLODIPINE 5MG TABLET PO SCH ×2 (09:00→21:13)
[2021-02-05] MEDS: CLONIDINE 0.1MG TABLET PO SCH ×2 (09:00→17:26)
[2021-02-05] MEDS: METOPROLOL TARTRATE 25MG TABLET PO SCH ×2 (09:00→20:35)
[2021-02-05] MEDS: GALANTAMINE HBR 8MG ER CAPSULE 24HR PO SCH (09:16)
[2021-02-05] MEDS: CEFTRIAXONE 1,000 MG in DEXTROSE 5% WATER 50 ML IV SCH (11:42)
[2021-02-05 12:00] VITALS: BP 129/63
[2021-02-05] MEDS ORDERED: SODIUM BICARBONATE 8.4% 1 MEQ/ML 50ML SYR IV SCH (14:00)
[2021-02-05 16:00] VITALS: BP 143/69
[2021-02-05 20:00] VITALS: BP 120/66
[2021-02-05] MEDS: ATORVASTATIN CALCIUM 40MG TABLET PO SCH (20:34)
[2021-02-06] VITALS: BP 111/57
[2021-02-06 04:00] VITALS: BP 110/54
[2021-02-06] MEDS: PANTOPRAZOLE 40MG DR TABLET PO SCH (06:02)
[2021-02-06] MEDS: NITROGLYCERIN OINT 1GM/INCH UDPKT TD SCH ×3 (06:02→21:10)
[2021-02-06 08:00] VITALS: BP 130/59
[2021-02-06] MEDS: AMLODIPINE 5MG TABLET PO SCH ×2 (08:35→21:10)
[2021-02-06] MEDS: FERROUS SULFATE 325MG TABLET PO SCH ×3 (08:35→17:28)
[2021-02-06] MEDS: CLONIDINE 0.1MG TABLET PO SCH ×2 (08:35→16:23)
[2021-02-06] MEDS: GALANTAMINE HBR 8MG ER CAPSULE 24HR PO SCH (08:35)
[2021-02-06] MEDS: METOPROLOL TARTRATE 25MG TABLET PO SCH ×2 (08:39→21:10)
[2021-02-06] MEDS: CEFTRIAXONE 1,000 MG in DEXTROSE 5% WATER 50 ML IV SCH (11:27)
[2021-02-06 12:00] VITALS: BP 135/61
[2021-02-06 16:00] VITALS: BP_SYST 104; BP_SYST 143; BP_DIAS 52; BP_DIAS 68
[2021-02-06 20:00] VITALS: BP 128/66
[2021-02-06] MEDS: ATORVASTATIN CALCIUM 40MG TABLET PO SCH (21:09)
[2021-02-07] VITALS: BP 123/72
[2021-02-07 04:00] VITALS: BP 126/60
[2021-02-07] MEDS: NITROGLYCERIN OINT 1GM/INCH UDPKT TD SCH ×3 (06:10→21:28)
[2021-02-07] MEDS: PANTOPRAZOLE 40MG DR TABLET PO SCH (06:10)
[2021-02-07 06:21] LABS: HEMATOCRIT. 23.5 % (36.0-48.0); HEMOGLOBIN. 8.2 g/dL (12.0-16.0); MEAN CORPUSCULAR HEMOGLOBIN 33.1 pg (28.0-32.0); MEAN CORPUSCULAR VOLUME 94.9 fL (81.0-99.0); MEAN PLATELET VOLUME 8.4 fl (7.4-10.4); PLATELET 215 x1000/uL (130-400); RED BLOOD CELL COUNT 2.47 mill/uL (4.2-5.4); RED CELL DISTRIBUTION WIDTH 14.7 % (11.6-14.6)
[2021-02-07 08:00] VITALS: BP 127/62
[2021-02-07] MEDS: GALANTAMINE HBR 8MG ER CAPSULE 24HR PO SCH (08:26)
[2021-02-07] MEDS: ASPIRIN 81MG EC TABLET PO SCH (08:26)
[2021-02-07] MEDS: CLOPIDOGREL 75MG TABLET PO SCH (08:27)
[2021-02-07] MEDS: FERROUS SULFATE 325MG TABLET PO SCH ×3 (08:27→16:43)
[2021-02-07] MEDS: CLONIDINE 0.1MG TABLET PO SCH ×2 (08:28→16:42)
[2021-02-07] MEDS: AMLODIPINE 5MG TABLET PO SCH ×2 (08:28→20:39)
[2021-02-07] MEDS: METOPROLOL TARTRATE 25MG TABLET PO SCH ×2 (08:29→20:38)
[2021-02-07 12:00] VITALS: BP 120/58
[2021-02-07] MEDS: CEFTRIAXONE 1,000 MG in DEXTROSE 5% WATER 50 ML IV SCH (13:06)
[2021-02-07 16:00] VITALS: BP 142/58
[2021-02-07 17:48] LABS: HEMATOCRIT 27.1 % (36.0-48.0); HEMOGLOBIN 9.5 g/dL (12.0-16.0)
[2021-02-07 20:00] VITALS: BP 104/60
[2021-02-07 21:00] LABS: PLATELET ESTIMATE NORMAL
[2021-02-07] MEDS: ATORVASTATIN CALCIUM 40MG TABLET PO SCH (21:28)
[2021-02-08] VITALS: BP 127/59
[2021-02-08 04:00] VITALS: BP 135/56
[2021-02-08] MEDS: FERROUS SULFATE 325MG TABLET PO SCH ×2 (06:28→14:41)
[2021-02-08] MEDS: PANTOPRAZOLE 40MG DR TABLET PO SCH (06:28)
[2021-02-08] MEDS: NITROGLYCERIN OINT 1GM/INCH UDPKT TD SCH ×2 (06:29→14:42)
[2021-02-08 08:00] VITALS: BP 125/69
[2021-02-08] MEDS: METOPROLOL TARTRATE 25MG TABLET PO SCH (09:00)
[2021-02-08] MEDS: AMLODIPINE 5MG TABLET PO SCH (09:30)
[2021-02-08] MEDS: GALANTAMINE HBR 8MG ER CAPSULE 24HR PO SCH (09:30)
[2021-02-08] MEDS: CLOPIDOGREL 75MG TABLET PO SCH (09:31)
[2021-02-08] MEDS: CLONIDINE 0.1MG TABLET PO SCH (09:31)
[2021-02-08] MEDS: ASPIRIN 81MG EC TABLET PO SCH (09:36)
[2021-02-08] MEDS: CEFTRIAXONE 1,000 MG in DEXTROSE 5% WATER 50 ML IV SCH (11:11)
[2021-02-08 12:00] VITALS: BP 129/54
[2021-02-08 16:00] VITALS: BP 130/61
[2021-02-08 16:12] LABS: BASOPHILS % 0.5 % (0.0-2.0); EOSINOPHILS % 1.5 % (0.0-5.0); HEMATOCRIT. 22.4 % (36.0-48.0); HEMOGLOBIN. 7.6 g/dL (12.0-16.0); LYMPHOCYTES % 20.4 % (20.0-50.0); MEAN CORPUSCULAR HEMOGLOBIN 32.1 pg (28.0-32.0); MEAN CORPUSCULAR VOLUME 94.2 fL (81.0-99.0); MEAN PLATELET VOLUME 7.7 fl (7.4-10.4); MONOCYTES % 14.3 % (2.0-8.0); NEUTROPHILS % 63.3 % (40.0-76.0); PLATELET 240 x1000/uL (130-400); RED BLOOD CELL COUNT 2.38 mill/uL (4.2-5.4); RED CELL DISTRIBUTION WIDTH 14.4 % (11.6-14.6)
[2021-02-08 17:02] VITALS: BP 130/61
== END 2021-02-08 18:25 | disposition home health service (06) | DRG 280 ==
LOC: ER 10:28 → MICUSO 01-30 00:44 → 7EST 01-30 14:48
PROVIDERS: ADMIT Internal Medicine; ATTEND Internal Medicine Geriatric Medicine
PROC: 4A10X4Z Monitoring of Central Nervous Electrical Activity, External Approach (ICD-10-PCS; principal; 2021-01-31)
DX: I21.4 Non-ST elevation (NSTEMI) myocardial infarction (principal); G92.8 Other toxic encephalopathy; I33.0 Acute and subacute infective endocarditis; E43 Unspecified severe protein-calorie malnutrition; I63.9 Cerebral infarction, unspecified; J81.1 Chronic pulmonary edema; N13.30 Unspecified hydronephrosis; N17.9 Acute kidney failure, unspecified; G91.9 Hydrocephalus, unspecified; J90 Pleural effusion, not elsewhere classified; N39.0 Urinary tract infection, site not specified; D63.8 Anemia in other chronic diseases classified elsewhere; E78.5 Hyperlipidemia, unspecified; E87.6 Hypokalemia; F03.90 Unspecified dementia, unspecified severity, without behavioral disturbance, psychotic disturbance, mood disturbance, and anxiety; I27.20 Pulmonary hypertension, unspecified; I49.3 Ventricular premature depolarization; N93.9 Abnormal uterine and vaginal bleeding, unspecified; D50.9 Iron deficiency anemia, unspecified; E86.9 Volume depletion, unspecified; I12.9 Hypertensive chronic kidney disease with stage 1 through stage 4 chronic kidney disease, or unspecified chronic kidney disease; N18.9 Chronic kidney disease, unspecified; D25.9 Leiomyoma of uterus, unspecified; K59.00 Constipation, unspecified; J32.3 Chronic sphenoidal sinusitis; I67.1 Cerebral aneurysm, nonruptured; R74.01 Elevation of levels of liver transaminase levels; K21.9 Gastro-esophageal reflux disease without esophagitis; I34.0 Nonrheumatic mitral (valve) insufficiency; I36.1 Nonrheumatic tricuspid (valve) insufficiency; R31.0 Gross hematuria; Z86.718 Personal history of other venous thrombosis and embolism; Z95.828 Presence of other vascular implants and grafts; Z86.73 Personal history of transient ischemic attack (TIA), and cerebral infarction without residual deficits; Z79.82 Long term (current) use of aspirin; Z79.899 Other long term (current) drug therapy; R91.8 Other nonspecific abnormal finding of lung field
CPT/HCPCS: 36415; 70496; 70544; 70553; 71045; 74176; 76770; 80048; 80053; 80061; 80076; 80320; 81003; 82140; 82378; 82550; 82553; 82607; 82746; 82962; 83036; 83540; 83550; 83735; 83880; 84132; 84443; 84484; 85014; 85018; 85025; 86304; 86850; 86900; 93005; 93306; 93308; 93880; 95816; 97112; 97116; 97162; 97166; 97530; 97535; 99291; C1893; J0696; J1940; J1956; J3490; J7040; J7060; Q9967; A4315; G0480

== ENCOUNTER 2021-02-14 11:26 | Emergency (ER) | payer MEDICARE, OTHER ==
[~2021-02-14] VITALS: Ht 162.6 cm; Wt 41.0 kg
[~2021-02-14 11:26] MED LIST changes: +APIX2.5T MT
[2021-02-14] MEDS ORDERED: VISCOUS LIDOCAINE 2% 15 ML UDC PO STA (11:40)
[2021-02-14] MEDS ORDERED: ONDANSETRON HCL 4MG/2ML INJ IV STA (11:40)
[2021-02-14] MEDS ORDERED: MAGNESIUM/ALUMINUM HYDROXIDE/SIMETHICONE 30ML UDC PO STA (11:40)
[2021-02-14] MEDS ORDERED: MORPHINE SULFATE 4 MG/ML CPJ (NOT FOR IM USE) IV ONE (12:00)
[2021-02-14 12:33] LABS: BASOPHILS % 0.8 % (0.0-2.0); HEMATOCRIT. 24.5 % (36.0-48.0); HEMOGLOBIN. 8.3 g/dL (12.0-16.0); LYMPHOCYTES % 24.9 % (20.0-50.0); MEAN CORPUSCULAR VOLUME 94.4 fL (81.0-99.0); MEAN PLATELET VOLUME 6.8 fl (7.4-10.4); NEUTROPHILS % 67.3 % (40.0-76.0); PLATELET 356 x1000/uL (130-400); RED CELL DISTRIBUTION WIDTH 13.9 % (11.6-14.6)
[2021-02-14 12:42] LABS: INR 1.2; PROTHROMBIN TIME 12.4 sec (9.6-11.0)
[2021-02-14 12:45] LABS: CHLORIDE 115 mEq/L (98-107)
[2021-02-14 12:51] LABS: ETHANOL BLOOD < 10 mg/dL
[2021-02-14] MEDS ORDERED: SODIUM CHLORIDE 0.9% 500 ML IV NR (14:30)
[2021-02-14 17:08] LABS: CLARITY URINE CLOUDY (CLEAR); COLOR URINE RED (YELLOW); KETONES URINE NEGATIVE (NEGATIVE); LEUKOCYTE ESTERASE URINE 1+ (NEGATIVE); NITRITE URINE NEGATIVE (NEGATIVE); OCCULT BLOOD URINE 3+ (NEGATIVE); PH URINE 7.5 (4.5-8.0); PROTEIN URINE 3+ (NEGATIVE); SPECIFIC GRAVITY URINE 1.014 (1.005-1.030); UROBILINOGEN URINE 0.2 E.U./dL (0.2-1.0)
[2021-02-14 17:40] LABS: *BENZODIAZEPINES SCREEN URINE NEGATIVE (NEGATIVE); *COCAINE SCREEN URINE NEGATIVE (NEGATIVE); OPIATES URINE SCREEN PRESUMTIVE POSITIVE (NEGATIVE)
[2021-02-14 17:41] LABS: *AMPHETAMINES SCREEN URINE NEGATIVE (NEGATIVE); *BARBITURATES SCREEN URINE NEGATIVE (NEGATIVE); CANNABINOID URINE SCREEN NEGATIVE (NEGATIVE); METHADONE URINE SCREEN NEGATIVE (NEGATIVE); PHENCYCLIDINE URINE SCREEN NEGATIVE (NEGATIVE)
[2021-02-14] MEDS ORDERED: NALOXONE HCL 0.4 MG/ML 1ML VIAL IV PRN (19:00)
[2021-02-14 19:30] VITALS: BP 131/61
== END 2021-02-14 20:30 | disposition short-term general hospital (02) ==
LOC: ER 11:26
DX: K59.00 Constipation, unspecified (principal); C55 Malignant neoplasm of uterus, part unspecified; C78.02 Secondary malignant neoplasm of left lung; C78.01 Secondary malignant neoplasm of right lung; D63.0 Anemia in neoplastic disease; E87.2 Acidosis; E86.0 Dehydration; F03.90 Unspecified dementia, unspecified severity, without behavioral disturbance, psychotic disturbance, mood disturbance, and anxiety; E78.00 Pure hypercholesterolemia, unspecified; I10 Essential (primary) hypertension; I25.2 Old myocardial infarction; Z66 Do not resuscitate; Z86.73 Personal history of transient ischemic attack (TIA), and cerebral infarction without residual deficits; Z86.718 Personal history of other venous thrombosis and embolism; Z79.01 Long term (current) use of anticoagulants
CPT/HCPCS: 36415; 70450; 74176; 80053; 80305; 80320; 81003; 82962; 83605; 83690; 85025; 85610; 87040; 93005; 96361; 96374; 96375; 99285; J2270; J2405; J7040; G0480